=== PATIENT | female | born 1985 | race Caucasian/White ===

== ENCOUNTER 2016-04-23 03:03 | Emergency (ER) | payer SELFPAY ==
[~2016-04-23] VITALS: Ht 157.5 cm; Wt 66.0 kg
[2016-04-23 03:06] VITALS: BP 156/104; PULSE 90; RESP 24; TEMP 97.6; O2SAT 100
[2016-04-23 04:23] LABS: AUTOMATED NEUTROPHIL # 5.5 TH/MM3 (1.8-7.7); BASOPHIL % 0.5 % (0.0-2.0); EOSINOPHIL # 0.2 TH/MM3 (0-0.4); EOSINOPHIL % 2.1 % (0.0-4.0); HEMATOCRIT 39.2 % (35.0-46.0); HEMO FLAGS DIFF FINAL; LYMPH % 26.5 % (9.0-44.0); LYMPHOCYTE # 2.3 TH/MM3 (1.0-4.8); MEAN CELL VOLUME 82.4 FL (80.0-100.0); MONO % 7.3 % (0.0-8.0); NEUT % 63.6 % (16.0-70.0); PLATELET COUNT 294 TH/MM3 (150-450); RED BLOOD COUNT 4.75 MIL/MM3 (4.00-5.30); RED CELL DISTRIBUTION WIDTH 13.6 % (11.6-17.2); WHITE BLOOD COUNT 8.7 TH/MM3 (4.0-11.0)
[2016-04-23 04:26] LABS: BACTERIA, URINE RARE /hpf; BLOOD, URINE TRACE (NEG); COMMENT (UR) CULT NOT INDICATED; CULTURE IF INDICATED CULT NOT INDICATED; GLUCOSE,URINE NEG (NEG); HYALINE CAST, URINE 1 /lpf (RARE); KETONE, URINE NEG (NEG); NITRITE,URINE NEG (NEG); RENAL EPITHELIAL CELLS <1 /hpf; SQUAMOUS EPITHELIAL CELL URINE 3 /hpf (0-5); URINE COLOR YELLOW (YELLW/STRAW)
[2016-04-23 04:51] LABS: ALT (GPT) 30 U/L (10-53); ANION GAP 7 MEQ/L (5-15); AST (GOT) 15 U/L (15-37); BICARBONATE 23.6 MEQ/L (21.0-32.0); BLOOD UREA NITROGEN 9 MG/DL (7-18); CHLORIDE 109 MEQ/L (98-107); GLOMERULAR FILTRATION RATE 103 ML/MIN (>89); POTASSIUM 3.7 MEQ/L (3.5-5.1); SODIUM (NA) 140 MEQ/L (136-145)
[2016-04-23 04:54] LABS: ALKALINE PHOSPHATASE 85 U/L (45-117); TOTAL BILIRUBIN ADULT 0.6 MG/DL (0.2-1.0)
[2016-04-23] MEDS ORDERED: SODIUM CHLOR 0.9% 1000 ML INJ 1,000 ML IV SCH (04:55)
[2016-04-23] MEDS ORDERED: LIDOCAINE VISCOUS 2% SOLN 15 ML UDC PO ONE (05:00)
[2016-04-23] MEDS ORDERED: MORPHINE SULFATE 8 MG/ML INJ IV PUSH ONE (05:00)
[2016-04-23] MEDS ORDERED: ALUMINUM/MAGNESIUM/SIMETH 30 ML CUP PO ONE (05:00)
[2016-04-23] MEDS ORDERED: IOHEXOL 350 MG/ML 100 ML BTL (for RAD DIAG) IV ONE (05:26)
--- NOTE | 2016-04-23 05:50 | RADRPT ---
EXAM DATE/TIME: 04/23/2016 05:24 [place] COMPARISON: No previous studies available for comparison. INDICATIONS : Abdominal pain. IV CONTRAST: 75 cc Omnipaque 350 (iohexol) IV ORAL CONTRAST: No oral contrast ingested. RADIATION DOSE: 7.87 CTDIvol (mGy) MEDICAL HISTORY : None SURGICAL HISTORY : None. ENCOUNTER: Initial ACUITY: 1 day PAIN SCALE: 2/10 LOCATION: abdomen TECHNIQUE: Volumetric scanning of the abdomen and pelvis was performed. Using automated exposure control and ad justment of the mA and/or kV according to patient size, radiation dose was kept as low as reasonably achievable to obtain optimal diagnostic quality images. FINDINGS: LOWER LUNGS: The visualized lower lungs are clear. LIVER: Homogeneous density without lesion. There is no dilation of the biliary tree. No calcified gallston es. SPLEEN: Normal size without lesion. PANCREAS: Within normal limits. KIDNEYS: Normal in size and shape. There is no mass, stone or hydronephrosis. 1.1 cm left renal cyst. ADRENAL GLANDS: Within normal limits. VASCULAR: There is no aortic aneurysm. BOWEL/MESENTERY: The stomach, small bowel, and colon demonstrate no acute abnormality. There is no free intraperitone al air or fluid. The appendix is not visualized. No inflammatory changes are demonstrated. ABDOMINAL WALL: Within normal limits. RETROPERITONEUM: There is no lymphadenopathy. BLADDER: No wall thickening or mass. REPRODUCTIVE: Small right ovarian cyst measuring 1.4 cm. Trace of fluid in the cul-de-sac. INGUINAL: There is no lymphadenopathy or hernia. MUSCULOSKELETAL: Within normal limits for patient age. CONCLUSION: 1. Small 1.4 cm right ovarian cyst with a trace of fluid in the cul-de-sac. 2. 1.1 cm left renal cyst. 3. Otherwise, unremarkable exam for patient's age. Mark Johnson MD on April 23, 2016 at 5:44 Board Certified Radiologist. This report was verified electronically.
[2016-04-23] MEDS ORDERED: HYDR-3533 PO (06:52)
[2016-04-23] MEDS ORDERED: MAALSUS18 PO (06:52)
--- NOTE | 2016-04-23 06:52 | PD ---
HPI Chief Complaint: Abdominal Pain Time Seen by Provider: 04:33 Travel History International Travel<30 days: No Contact w/Intl Traveler<30days: No Traveled to known affect area: No History of Present Illness HPI 31-year-old female arrives with a few hours of abdominal pain. It is quite severe. She's had similar episodes before, about 5 days ago. The pain is most severe in the epigastrium. The onset was gradual. No vomiting or diarrhea has occurred. She's had no fever. it has a stabbing quality and radiates to the back. She denies vaginal bleeding/discharge. She has no urinary complaint. No chest pain shortness of breath diaphoresis lightheadedness or dizziness. PFSH Past Medical History Medical History: Denies Significant Hx Tetanus Vaccination: Unknown Influenza Vaccination: No ?: Not LMP: 03-30-16 Past Surgical History Surgical History: No Previous Surgery Social History Alcohol Use: No Tobacco Use: No Substance Use: No Allergies-Medications (Allergen,Severity, Reaction): Coded Allergies: No Known Allergies (Unverified , 04/23/16) Reported Meds & Prescriptions Reported Meds & Active Scripts Active Maalox Advanced Maximum Strength Liq (Rcfwxvdx-Cjzsjdsme-Evmszkuijyz Liq) 400- 400-40 Mg/5 Ml Susp 10-20 Ml PO QID PRN 5 Days Take between meals or as directed. Shake well. Maximum 60 ml/24 hrs. Lortab (Hydrocodone-Acetaminophen) 5-325 Mg Tab 1-2 Tab PO Q6H PRN Review of Systems Except as stated in HPI: all other systems reviewed are Neg Physical Exam Narrative GENERAL: Well-nourished well-developed 31-year-old female mild to moderate distress SKIN: Warm and dry. HEAD: Atraumatic. Normocephalic. EYES: Pupils equal and round. No scleral icterus. No injection or drainage. ENT: No nasal bleeding or discharge. Mucous membranes pink and moist. NECK: Trachea midline. No JVD. CARDIOVASCULAR: Regular rate and rhythm. No murmur appreciated. RESPIRATORY: No accessory muscle use. Clear to auscultation. Breath sounds equal bilaterally. GASTROINTESTINAL: Tenderness palpation in epigastrium. Negative Blanca sign. No tenderness at McBurney's point MUSCULOSKELETAL: No obvious deformities. No clubbing. No cyanosis. No edema. NEUROLOGICAL: Awake and alert. No obvious cranial nerve deficits. Motor grossly within normal limits. Normal speech. PSYCHIATRIC: Appropriate mood and affect; insight and judgment normal. Data Data Last Documented VS Vital Signs Date Time Temp Pulse Resp B/P Pulse Ox O2 Delivery O2 Flow Rate FiO2 04/23/16 07:31 88 16 178/82 98 04/23/16 03:06 97.6 Room Air Orders Urinalysis - C+S If Indicated (04/23/16 03:16) Complete Blood Count With Diff (04/23/16 03:16) Comprehensive Metabolic Panel (04/23/16 03:16) Ed Urine Pregnancytest Poc (04/23/16 03:16) Troponin I (04/23/16 03:16) Electrocardiogram (04/23/16 ) Ct Abd/Pel W Iv Contrast(Rout) (04/23/16 04:55) Iv Access Insert/Monitor (04/23/16 04:55) Ecg Monitoring (04/23/16 04:55) Sodium Chlor 0.9% 1000 Ml Inj (Ns 1000 M (04/23/16 04:55) Morphine Inj (Morphine Inj) (04/23/16 05:00) Al-Mag Hy-Si 40-40-4 Mg/Ml Liq (Mag-Al P (04/23/16 05:00) Lidocaine 2% Viscous (Xylocaine 2% Visco (04/23/16 05:00) Lipase (04/23/16 03:52) Iohexol 350 Inj (Omnipaque 350 Inj) (04/23/16 05:26) Labs Laboratory Tests Test 04/23/16 04/23/16 03:21 03:52 Urine Color YELLOW Urine Turbidity HAZY Urine pH 7.0 Urine Specific [place] 1.015 Urine Protein NEG mg/dL Urine Glucose (UA) NEG mg/dL Urine Ketones NEG mg/dL Urine Occult Blood TRACE Urine Nitrite NEG Urine Bilirubin NEG Urine Urobilinogen LESS THAN 2.0 MG/DL Urine Leukocyte Esterase NEG Urine RBC 2 /hpf Urine WBC 2 /hpf Urine Squamous Epithelial 3 /hpf Cells Urine Renal Epithelial Cells <1 /hpf Urine Amorphous Sediment RARE Urine Bacteria RARE /hpf Urine Hyaline Casts 1 /lpf Microscopic Urinalysis Comment CULT NOT INDICATED White Blood Count 8.7 TH/MM3 Red Blood Count 4.75 MIL/MM3 Hemoglobin 13.3 GM/DL Hematocrit 39.2 % Mean Corpuscular Volume 82.4 FL Mean Corpuscular Hemoglobin 28.0 PG Mean Corpuscular Hemoglobin 34.0 % Concent Red Cell Distribution Width 13.6 % Platelet Count 294 TH/MM3 Mean Platelet Volume 8.6 FL Neutrophils (%) (Auto) 63.6 % Lymphocytes (%) (Auto) 26.5 % Monocytes (%) (Auto) 7.3 % Eosinophils (%) (Auto) 2.1 % Basophils (%) (Auto) 0.5 % Neutrophils # (Auto) 5.5 TH/MM3 Lymphocytes # (Auto) 2.3 TH/MM3 Monocytes # (Auto) 0.6 TH/MM3 Eosinophils # (Auto) 0.2 TH/MM3 Basophils # (Auto) 0.0 TH/MM3 CBC Comment DIFF FINAL Differential Comment Sodium Level 140 MEQ/L Potassium Level 3.7 MEQ/L Chloride Level 109 MEQ/L Carbon Dioxide Level 23.6 MEQ/L Anion Gap 7 MEQ/L Blood Urea Nitrogen 9 MG/DL Creatinine 0.67 MG/DL Estimat Glomerular Filtration 103 ML/MIN Rate Random Glucose 110 MG/DL Calcium Level 8.8 MG/DL Total Bilirubin 0.6 MG/DL Aspartate Amino Transf 15 U/L (AST/SGOT) Alanine Aminotransferase 30 U/L (ALT/SGPT) Alkaline Phosphatase 85 U/L Troponin I LESS THAN 0.02 NG/ML Total Protein 7.3 GM/DL Albumin 3.8 GM/DL Lipase 119 U/L MDM Medical Decision Making Medical Screen Exam Complete: Yes Emergency Medical Condition: Yes Differential Diagnosis Constipation, Gastritis, Acute Cholecystitis, Biliary Colic, Pancreatitis, TANNER , Hepatitis, Bowel Obstruction, Cystitis, Mesenteric Ischemia, AAA, Appendicitis , Renal Stone/Hydronephrosis, GERD, perforated viscous Narrative Course CBC & BMP Diagram 04/23/16 03:52 LFTs: normal Lipase: normal Tn < 0.02 UA: no UTI You have a choice when it comes to health care, and we are glad that you chose [facility]. Hopefully, we have met your expectations on today's visit. You are welcome to return to [facility] at any time, as we are committed to meeting the health care needs of our community. Last 24 hours Impressions Abdomen/Pelvis CT 04/23/16 [id number] Signed Impressions: Service Date/Time: Saturday, April 23, 2016 05:24 - CONCLUSION: 1. Small 1.4 cm right ovarian cyst with a trace of fluid in the cul-de-sac. 2. 1.1 cm left renal cyst. 3. Otherwise, unremarkable exam for patient's age. Mark Johnson MD Diagnosis Primary Impression: Abdominal pain Qualified Code: R10.13 - Epigastric pain Additional Impression: Ovarian cyst Qualified Code: N83.201 - Cyst of right ovary Referrals: Janet Baldwin MD 2 days Primary Care Physician 2 days Additional Instructions: You have a choice when it comes to health care, and we are glad that you chose [facility]. Hopefully, we have met your expectations on today's visit. You are welcome to return to [facility] at any time, as we are committed to meeting the health care needs of our community. Med/Other Pt SpecificInfo: Prescription(s) given Scripts Ztzcgayt-Lnblfdkar-Yxqgoxzvraw Liq (Maalox Advanced Maximum Strength Liq)400-400 -40 Mg/5 Ml [id number] Ml PO QID PRN (INDIGESTION OR UPSET STOMACH) 5 Days Ref 0 Take between meals or as directed. Shake well. Maximum 60 ml/24 hrs. Prov:Archie Hernandez MD 04/23/16 Hydrocodone-Acetaminophen (Lortab)5-325 Mg Tab1-2 Tab PO Q6H PRN (PAIN SCALE 6 TO 10) #20 TAB Ref 0 Prov:Archie Hernandez MD 04/23/16 Disposition: 01 DISCHARGE HOME Condition: Stable Archie Hernandez MD Apr 23, 2016 06:52
[2016-04-23 07:31] VITALS: BP 178/82
--- NOTE | 2016-04-23 08:11 | EKG ---
Date Performed: 04/23/2016 Time Performed: 03:35:22 PTAGE: 31 years EKG: BASELINE ARTIFACT PRESENT. Sinus rhythm NORMAL ECG.I would repeat this to confirm normality. NO PREVIOUS TRACING DOCTOR: Justin Liao Interpretating Date/Time 04/23/2016 08:10:47
== END 2016-04-23 07:32 | disposition home or self-care (01) ==
LOC: NEPC 03:03
DX: R10.9 Unspecified abdominal pain (principal); N83.201 Unspecified ovarian cyst, right side
CPT/HCPCS: 74177; 80053; 81001; 83690; 84484; 84703; 85025; 93005; 96361; 96374; 99284; J2270; J7030; Q9967